=== PATIENT | male | born 1985 | race Caucasian/White ===

== ENCOUNTER 2017-03-15 14:58 | Emergency (ER) | payer MEDICARE, OTHER ==
[~2017-03-15] VITALS: Ht 172.7 cm; Wt 142.9 kg
[2017-03-15] MEDS ORDERED: ASPIRIN 325 MG TABLET PO ONE (15:45)
--- NOTE | 2017-03-15 15:59 | RAD ---
Indication: Chest pain, left arm numbness, symptoms for 2 days. Technique: Two-view chest radiograph was obtained. No comparison is available. Findings: The lungs are clear. The cardiopulmonary silhouette is within normal limits. There is no pleural effusion. The bony structures are intact. Impression: No acute thoracic findings.
--- NOTE | 2017-03-15 16:01 | EKG ---
[facility] [address] [place] [id number] Test Date: 2017-03-15 Test Time: 15:35:07 Pat Name: SUREKHA DRAKE Department: Room: Gender: M Sl[employer] In[employer]or [employer]ator: : 1985 Requested By: COURTNEY CAZARES Order Number: [id number] Reading MD: Greg Rich MD Measurements Intervals [place] Rate: 85 P: 47 [place]: 158 QRS: 26 QRSD: 84 T: 33 QT: 342 QTc: 412 Interpretive Statements SINUS RHYTHM Electronically Signed On 03-15-2017 16:39:13 [employer] by Greg Rich MD
[2017-03-15 16:26] LABS: BASO # 0.2 x10^3/uL (0.0-0.2); BASO % 1 % (0-3); EOS % 4 % (0-3); HEMATOCRIT 41.9 % (39.0-53.0); HEMOGLOBIN 14.4 g/dL (13.0-17.5); LYMPH # 2.9 x10^3/uL (1.0-4.8); LYMPH % 18 % (24-48); MEAN CORPUSCULAR HEMOGLOBIN 28 pg (25-35); MEAN CORPUSCULAR HGB CONC 34 g/dL (31-37); MEAN CORPUSCULAR VOLUME 80 fL (79-100); MONO % 5 % (0-9); NEUT % 73 % (31-73); PLATELET COUNT 310 x10^3/uL (140-400); RED BLOOD COUNT 5.23 x10^6/uL (4.30-5.70); RED CELL DISTRIBUTION WIDTH 15.1 % (11.5-14.5); WHITE BLOOD COUNT 16.5 x10^3/uL (4.0-11.0)
--- NOTE | 2017-03-15 16:27 | PHYS DOC ---
Past Medical History Past Medical History: Schizophrenia Past Surgical History: Appendectomy Alcohol Use: Occasionally Drug Use: None Adult General Chief Complaint Chief Complaint: CHEST PAIN HPI HPI Patient is a 31 year old male with history of schizophrenia who presents with 1 out of 10 left-sided chest pain radiating to the left upper extremity with left upper extremity numbness that began one hour prior to coming to the ED when he was driving to [email or web address] to get his lunch. Patient denies any pain right now. He states the pain lasted for a few minutes. He states the pain went away when he adjusted his sitting position. Patient unable to describe the pain. Patient states he just finished a dose of antibiotics prescribed by the PCP 3 weeks ago for sinus infection. Patient denies any congestion. Denies any history of smoking. Denies any history of illicit drug use. He states he still has a slight cough. PCP Dr. Carrillo Review of Systems Review of Systems Constitutional: Denies fever or chills [] Eyes: Denies change in visual acuity, redness, or eye pain [] HENT: Denies nasal congestion or sore throat [] Respiratory: Reports cough, denies shortness of breath Cardiovascular: Reports left-sided chest pain that has subsided. GI: Denies abdominal pain, nausea, vomiting, bloody stools or diarrhea [] : Denies dysuria or hematuria [] Musculoskeletal: Denies back pain or joint pain [] Integument: Denies rash or skin lesions [] Neurologic: Reports left arm numbness. Denies headache, focal weakness or sensory changes [] Endocrine: Denies polyuria or polydipsia [] All other systems were reviewed and found to be within normal limits, except as documented in this note. Current Medications Current Medications Current Medications Medications (Trade) Dose Ordered Sig/[facility] Start Time Stop Time Status Last Admin Dose Admin Aspirin (Wyatt Aspirin) 325 mg 1X ONCE 03/15/17 15:45 03/15/17 15:46 DC Allergies Allergies Allergies Coded Allergies Type Severity Reaction Last Updated Verified No Known Drug Allergies 03/15/17 No Physical Exam Physical Exam Constitutional: Well developed, well nourished, no acute distress, non-toxic appearance. [] HENT: Normocephalic, atraumatic, bilateral external ears normal, oropharynx moist, no oral exudates, nose normal. [] Eyes: PERRLA, EOMI, conjunctiva normal, no discharge. [] Neck: Normal range of motion, no tenderness, supple, no stridor. [] Cardiovascular:Heart rate regular rhythm, no murmur [] Lungs & Thorax: Bilateral breath sounds clear to auscultation [] Abdomen: Bowel sounds normal, soft, no tenderness, no masses, no pulsatile masses. [] Skin: Warm, dry, no erythema, no rash. [] Back: No tenderness, no CVA tenderness. [] Extremities: No tenderness, no cyanosis, no clubbing, ROM intact, no edema. [] Neurologic: Alert and oriented X 3, normal motor function, normal sensory function, no focal deficits noted. Cranial nerves II through XII intact Psychologic: Affect normal, judgement normal, mood normal. [] Current Patient Data Vital Signs Vital Signs Date Time Temp Pulse Resp B/P (MAP) Pulse Ox O2 Delivery O2 Flow Rate FiO2 03/15/17 15:18 172/92 (118) Lab Values Laboratory Tests Test 03/15/17 16:15 White Blood Count 16.5 x10^3/uL (4.0-11.0) H Red Blood Count 5.23 x10^6/uL (4.30-5.70) Hemoglobin 14.4 g/dL (13.0-17.5) Hematocrit 41.9 % (39.0-53.0) Mean Corpuscular Volume 80 fL (79-100) Mean Corpuscular Hemoglobin 28 pg (25-35) Mean Corpuscular Hemoglobin Concent 34 g/dL (31-37) Red Cell Distribution Width 15.1 % (11.5-14.5) H Platelet Count 310 x10^3/uL (140-400) Neutrophils (%) (Auto) 73 % (31-73) Lymphocytes (%) (Auto) 18 % (24-48) L Monocytes (%) (Auto) 5 % (0-9) Eosinophils (%) (Auto) 4 % (0-3) H Basophils (%) (Auto) 1 % (0-3) Neutrophils # (Auto) 11.9 x10^3uL (1.8-7.7) H Lymphocytes # (Auto) 2.9 x10^3/uL (1.0-4.8) Monocytes # (Auto) 0.8 x10^3/uL (0.0-1.1) Eosinophils # (Auto) 0.7 x10^3/uL (0.0-0.7) Basophils # (Auto) 0.2 x10^3/uL (0.0-0.2) Prothrombin Time 12.9 SEC (11.7-14.0) Prothrombin Time INR 1.0 (0.8-1.1) D-Dimer (Stefanie) 0.34 ug/mlFEU (0.00-0.50) Sodium Level 139 mmol/L (136-145) Potassium Level 3.9 mmol/L (3.5-5.1) Chloride Level 103 mmol/L (98-107) Carbon Dioxide Level 26 mmol/L (21-32) Anion Gap 10 (6-14) Blood Urea Nitrogen 13 mg/dL (8-26) Creatinine 1.1 mg/dL (0.7-1.3) Estimated GFR (Cockcroft-Gault) 78.6 BUN/Creatinine Ratio 12 (6-20) Glucose Level 129 mg/dL (70-99) H Calcium Level 8.9 mg/dL (8.5-10.1) Magnesium Level 1.8 mg/dL (1.8-2.4) Total Bilirubin 0.3 mg/dL (0.2-1.0) Aspartate Amino Transferase (AST) 24 U/L (15-37) Alanine Aminotransferase (ALT) 54 U/L (16-63) Alkaline Phosphatase 109 U/L (46-116) Creatine Kinase 122 U/L (39-308) Creatine Kinase MB (Mass) < 0.5 ng/mL (0.0-3.6) Creatine Kinase MB Relative Index 0.4 % (0-4) Troponin I Quantitative < 0.017 ng/mL (0.000-0.055) LQ-Nyx-I-Type Natriuretic Peptide 16 pg/mL (0-124) Total Protein 7.9 g/dL (6.4-8.2) Albumin 3.5 g/dL (3.4-5.0) Albumin/Globulin Ratio 0.8 (1.0-1.7) L Thyroid Stimulating Hormone (TSH) 2.281 uIU/mL (0.358-3.74) Laboratory Tests 03/15/17 16:15 Laboratory Tests 03/15/17 16:15 EKG EKG 15:[address] Still sinus rhythm heart rate 85 QRS interval 84, no STEMI. Radiology/Procedures Radiology/Procedures []PROCEDURE: CHEST PA & LATERAL Indication: Chest pain, left arm numbness, symptoms for 2 days. Technique: Two-view chest radiograph was obtained. No comparison is available. Findings: The lungs are clear. The cardiopulmonary silhouette is within normal limits. There is no pleural effusion. The bony structures are intact. Impression: No acute thoracic findings. DICTATED and SIGNED BY: ANDRZEJ ONEIL MD DATE: 03/15/17 0162 CC: COURTNEY CAZARES APRN; CATALINA GONZALES MD ~ Course & Med Decision Making Course & Med Decision Making Pertinent Labs and Imaging studies reviewed. (See chart for details) This is a 31-year-old male who presents with left-sided chest pain 1 out of 10 that occurred 1 hour prior to coming to the ED. Patient has no chest pain right now. Chest x-ray interpreted by radiologist is negative for any acute findings. Negative EKG as documented. CMP CK-MB and troponin with no acute findings. WBC was 16.9. D-dimer is normal. Patient had aspirin prior to coming to the ED. Patient is in no distress. His pain is very musculoskeletal. Blood pressure was slightly elevated at 172/92, he denies any history of hypertension. He is 31 years old. Talked to patient about his symptoms. He has a PCP with good follow- up. I recommended he contacts the PCP and follow-up in the next 1-3 days. Provided patient and parent return precautions. Recommended Tylenol or Motrin for pain. Instructed him to return to the ED if symptoms worsen. Discharged with albuterol inhaler. Dragon Disclaimer Dragon Disclaimer This electronic medical record was generated, in whole or in part, using a voice recognition dictation system. Departure Departure Impression: Primary Impression: Costochondritis, acute Additional Impressions: Elevated blood pressure reading Cough Disposition: 01 HOME, SELF-CARE Condition: STABLE Referrals: CATALINA GONZALES MD (PCP) please follow up with your doctor in one to three days Patient Instructions: Costochondritis, Cough, Adult, Hypertension Additional Instructions: You were seen for cough and chest pain in the emergency room. We encourage you to take breathing treatments as needed for cough and to take Tylenol /Motrin for pain. Follow-up with your primary care doctor in the next 1-3 days. Come back to the emergency room at any point your symptoms worsen. Scripts Benzonatate (TESSALON PERLE) 100 Mg Capsule 1 CAP PO TID, #30 CAP Prov: COURTNEY CAZARES APRN 03/15/17 Albuterol Sulfate (Proair Respiclick) 90 Mcg Aer.pow.ba 1 PUFF IH PRN Q6HRS Y for SHORTNESS OF BREATH, #1 INHALER Prov: COURTNEY CAZARES APRN 03/15/17 Problem Qualifiers COURTNEY CAZARES APRN Mar 15, 2017 16:27
[2017-03-15 16:41] LABS: PROTHROMBIN TIME PATIENT 12.9 SEC (11.7-14.0)
[2017-03-15 16:44] LABS: CALCIUM 8.9 mg/dL (8.5-10.1); CREATININE 1.1 mg/dL (0.7-1.3); GFR 78.6; POTASSIUM 3.9 mmol/L (3.5-5.1)
[2017-03-15 16:50] LABS: ALBUMIN 3.5 g/dL (3.4-5.0); ALBUMIN/GLOBULIN RATIO 0.8 (1.0-1.7); MAGNESIUM 1.8 mg/dL (1.8-2.4); TOTAL BILIRUBIN 0.3 mg/dL (0.2-1.0); TOTAL PROTEIN 7.9 g/dL (6.4-8.2)
[2017-03-15 16:57] LABS: CREATINE KINASE 122 U/L (39-308)
[2017-03-15 17:02] LABS: CKMB MASS < 0.5 ng/mL (0.0-3.6)
[2017-03-15 17:15] VITALS: BP 143/62
[2017-03-15] MEDS ORDERED: PROAIR RESPICL90 MCG IH (17:26)
[2017-03-15] MEDS ORDERED: BENZ100C PO (17:26)
== END 2017-03-15 17:44 | disposition home or self-care (01) ==
LOC: ER 14:58
DX: M94.0 Chondrocostal junction syndrome [Tietze] (principal); R03.0 Elevated blood-pressure reading, without diagnosis of hypertension; R05 Cough; F20.9 Schizophrenia, unspecified
CPT/HCPCS: 36415; 71020; 80053; 82553; 83735; 83880; 84443; 84484; 85025; 85379; 85610; 93005; 99285-25

== ENCOUNTER 2017-09-12 16:52 | Emergency (ER) | payer MEDICARE, OTHER ==
[2017-09-12 17:48] LABS: ADD MAN DIFF? NO
[2017-09-12 17:51] LABS: BASO # 0.1 x10^3/uL (0.0-0.2); BASO % 1 % (0-3); EOS # 0.3 x10^3/uL (0.0-0.7); EOS % 2 % (0-3); HEMATOCRIT 38.9 % (39.0-53.0); HEMOGLOBIN 13.5 g/dL (13.0-17.5); LYMPH # 2.5 x10^3/uL (1.0-4.8); LYMPH % 15 % (24-48); MEAN CORPUSCULAR HEMOGLOBIN 27 pg (25-35); MEAN CORPUSCULAR HGB CONC 35 g/dL (31-37); MEAN CORPUSCULAR VOLUME 79 fL (79-100); MONO # 0.9 x10^3/uL (0.0-1.1); MONO % 6 % (0-9); NEUT # 12.2 x10^3uL (1.8-7.7); NEUT % 76 % (31-73); PLATELET COUNT 309 x10^3/uL (140-400); RED BLOOD COUNT 4.96 x10^6/uL (4.30-5.70); RED CELL DISTRIBUTION WIDTH 14.9 % (11.5-14.5)
[2017-09-12 17:53] LABS: BILIRUBIN,URINE SMALL (NEG); CLARITY,URINE CLOUDY; COLOR,URINE AMBER; GLUCOSE,URINE NEGATIVE (NEG); NITRITE,URINE NEGATIVE (NEG); PROTEIN,URINE 100 mg/dL (NEG-TRACE); UROBILINOGEN,URINE 0.2 mg/dL (0.2 mg/dL)
[2017-09-12 17:58] LABS: BARBITURATES NEG (NEG); BENZODIAZEPINES NEG (NEG); CANNABINOIDS NEG (NEG); COCAINE NEG (NEG); METHADONE NEG (NEG); OPIATES NEG (NEG); PHENCYCLIDINE NEG (NEG)
[2017-09-12 17:59] LABS: ANION GAP 9 (6-14); BLOOD UREA NITROGEN 11 mg/dL (8-26); BUN/CREATININE RATIO 10 (6-20); CALCIUM 8.8 mg/dL (8.5-10.1); CARBON DIOXIDE 26 mmol/L (21-32); CHLORIDE 106 mmol/L (98-107); CREATININE 1.1 mg/dL (0.7-1.3); GFR 78.1; GLUCOSE 128 mg/dL (70-99); POTASSIUM 3.9 mmol/L (3.5-5.1); SODIUM 141 mmol/L (136-145)
[2017-09-12 18:00] LABS: AMPHETAMINE/METHAMPHETAMINE NEG (NEG); BACTERIA,URINE 0 /HPF (0-FEW); ETHANOL, URINE NEG (NEG); HYALINE CASTS, URINE FEW /HPF; RBC,URINE >40 /HPF (0-2)
[2017-09-12 18:04] LABS: ALBUMIN 3.4 g/dL (3.4-5.0); ALBUMIN/GLOBULIN RATIO 0.8 (1.0-1.7); ALK PHOS 96 U/L (46-116); ALT (SGPT) 50 U/L (16-63); AST (SGOT) 23 U/L (15-37); TOTAL BILIRUBIN 0.5 mg/dL (0.2-1.0); TOTAL PROTEIN 7.7 g/dL (6.4-8.2)
== END 2017-09-12 19:55 | disposition short-term general hospital (02) ==
LOC: ER 16:52
DX: F25.9 Schizoaffective disorder, unspecified (principal); F91.9 Conduct disorder, unspecified; F31.9 Bipolar disorder, unspecified
CPT/HCPCS: 36415; 80053; 80307; 81001; 85025; 87086; 99285-25